=== PATIENT | male | born 1965 | race Caucasian/White ===

== ENCOUNTER 2020-11-19 09:17 | Emergency (ER) | payer BC ==
[2020-11-19 10:51] LABS: HEMOGLOBIN 13.7 gm/dl (14.0-17.5); RED BLOOD COUNT 3.92 M/UL (4.20-5.50); WHITE BLOOD COUNT 16.7 K/UL (4.5-11.0)
== END 2020-11-19 14:40 | disposition short-term general hospital (02) ==
LOC: ER1 09:17
PROVIDERS: Emergency Medicine
DX: A41.9 Sepsis, unspecified organism (principal); L03.317 Cellulitis of buttock; L02.31 Cutaneous abscess of buttock; N17.9 Acute kidney failure, unspecified; I10 Essential (primary) hypertension; D72.829 Elevated white blood cell count, unspecified; F17.200 Nicotine dependence, unspecified, uncomplicated; Z88.2 Allergy status to sulfonamides
CPT/HCPCS: 72192; 80053; 83605; 85025; 85652; 86140; 87040; 93005; 96365; 96366; 96367; 96375; 99285; J2270; J2405; J2543; J3370; J7030; Q9967

== ENCOUNTER → 2021-06-25 | Outpatient (CLI) | payer BC | LOC: KOH-I 15:56 | DX: R06.02 Shortness of breath (principal) | CPT/HCPCS: 71046 ==

== ENCOUNTER → 2021-07-23 | Outpatient (CLI) | payer BC | LOC: HEART 5 09:18 | DX: R07.9 Chest pain, unspecified (principal); R60.9 Edema, unspecified; R00.2 Palpitations; R06.02 Shortness of breath; I34.0 Nonrheumatic mitral (valve) insufficiency; I36.1 Nonrheumatic tricuspid (valve) insufficiency | CPT/HCPCS: 93306 ==

== ENCOUNTER → 2021-08-29 | Outpatient (CLI) | payer BC | LOC: HEART 5 13:41 | DX: R06.02 Shortness of breath (principal) | CPT/HCPCS: 94060; 94729 ==